=== PATIENT | male | born 1970 | race Caucasian/White ===

== ENCOUNTER 2019-09-17 11:46 | Emergency (ER) | payer SELFPAY ==
[2019-09-17] MEDS ORDERED: METOCLOPRAMIDE HCL INJ/PF 10 MG/2 ML SDV IV ONE (12:03)
[2019-09-17] MEDS ORDERED: DIPHENHYDRAMINE HCL 50 MG/ML VIAL IV ONE (12:03)
[2019-09-17] MEDS ORDERED: NORMAL SALINE 1000 ML 1,000 ML IV ONE ×2 (12:03→14:24)
--- NOTE | 2019-09-17 12:05 | ER Document Report ---
ED Medical Screen (RME) - General Chief Complaint: Eye Problem Stated Complaint: EYE ISSUE Time Seen by Provider: 09/17/19 11:56 Notes: Patient is a 49-year-old male who presents the emergency department with a chief complaint of right eye pain. Patient states that 2 days ago he felt that his eye had hurt and now he has some photophobia. He also states that he has a headache to the right side of his head. Patient admits to rubbing his eye. Denies any visual changes, but states that he is diabetic and his sugars have not been where they need to be. He is currently on metformin. He states that he was on insulin at one point, but states that he cannot afford it because it is too expensive. Exam: Erythema noted to right eye. I have greeted and performed a rapid initial assessment of this patient. A comprehensive ED assessment and evaluation of the patient, analysis of test results and completion of medical decision making process will be conducted by an additional ED providers. TRAVEL OUTSIDE OF THE [place] IN LAST 30 DAYS: No - Related Data Allergies/Adverse Reactions: No Known Allergies Allergy (Verified 09/17/19 11:54) Home Medications: metformin Past Medical History - Social History Chew tobacco use (# tins/day): No Frequency of alcohol use: None Drug Abuse: None Physical Exam - Vital signs Vitals: Temp Pulse Resp BP Pulse Ox 97.5 F 108 H 18 137/87 H 97 09/17/19 11:51 09/17/19 11:51 09/17/19 11:51 09/17/19 11:51 09/17/19 11:51 Course - Vital Signs Vital signs: Temp Pulse Resp BP Pulse Ox 97.5 F 108 H 18 137/87 H 97 09/17/19 11:51 09/17/19 11:51 09/17/19 11:51 09/17/19 11:51 09/17/19 11:51
[2019-09-17] MEDS ORDERED: TETRACAINE HCL 0.5% OPH SOLN 4 ML ONE (12:47)
[2019-09-17 13:02] LABS: ABSOLUTE BASOPHILS # (AUTO) 0.1 10^3/uL (0.0-0.2); ABSOLUTE EOSINOPHILS # (AUTO) 0.1 10^3/uL (0.0-0.6); ABSOLUTE LYMPHOCYTES (AUTO) 1.8 10^3/uL (0.5-4.7); ABSOLUTE MONOCYTES (AUTO) 0.8 10^3/uL (0.1-1.4); ABSOLUTE NEUT (AUTO) 5.6 10^3/uL (1.7-8.2); BASOPHILS % (AUTO) 0.7 % (0-2); EOSINOPHILS % (AUTO) 1.2 % (0-6); HEMATOCRIT 45.9 % (37.9-51.0); HEMOGLOBIN 16.1 g/dL (13.5-17.0); LYMPHOCYTES % (AUTO) 21.8 % (13-45); MEAN CORPUSCULAR HEMOGLOBIN 29.7 pg (27.0-33.4); MEAN CORPUSCULAR HGB CONC 35.2 g/dL (32.0-36.0); MEAN CORPUSCULAR VOLUME 85 fl (80-97); MONOCYTES % (AUTO) 9.1 % (3-13); PLATELET COUNT 322 10^3/uL (150-450); RED BLOOD COUNT 5.42 10^6/uL (4.35-5.55); RED CELL DISTRIBUTION WIDTH 13.6 % (11.5-14.0); SEGMENTED NEUTROPHILS % (AUTO) 67.2 % (42-78); TOTAL CELLS COUNTED % (AUTO) 100 %; WHITE BLOOD COUNT 8.3 10^3/uL (4.0-10.5)
[2019-09-17 13:10] LABS: APPEARANCE,URINE CLEAR; BILIRUBIN,URINE NEGATIVE (NEGATIVE); COLOR,URINE YELLOW; GLUCOSE, URINE >=500 mg/dL (NEGATIVE); KETONES,URINE 20 mg/dL (NEGATIVE); LEUKOCYTE ESTERASE,URINE NEGATIVE (NEGATIVE); NITRITE,URINE NEGATIVE (NEGATIVE); PROTEIN,URINE NEGATIVE (NEGATIVE); URINE SPECIFIC GRAVITY 1.039; UROBILINOGEN,URINE NEGATIVE mg/dL (<2.0)
--- NOTE | 2019-09-17 13:11 | ER Document Report ---
ED Eye Complaint - General Chief Complaint: Eye Problem Stated Complaint: EYE ISSUE Time Seen by Provider: 09/17/19 11:56 Primary Care Provider: KALEE ESTEBAN MD [ACTIVE STAFF] - Follow up as needed Mode of Arrival: Ambulatory Information source: Patient Notes: 49-year-old man presents to the emergency department with a complaint of right eye pain. States that he got up early in the morning on Wednesday morning open refrigerator door and then noted that he was having pain in the right eye. He complains of light sensitivity and tearing from the. He denies a history of alcohol, he has had cataracts. He is a diabetic with poorly controlled diabetes mellitus. TRAVEL OUTSIDE OF THE [place] IN LAST 30 DAYS: No - Related Data Allergies/Adverse Reactions: No Known Allergies Allergy (Verified 09/17/19 11:54) Home Medications: metformin Past Medical History - Social History Smoking Status: Former Smoker Chew tobacco use (# tins/day): No Frequency of alcohol use: None Drug Abuse: None Family History: Reviewed & Not Pertinent Patient has suicidal ideation: No Patient has homicidal ideation: No Review of Systems - Review of Systems Notes: Constitutional: Negative for fever. HENT: Negative for sore throat. Eyes: + Right eye pain. Cardiovascular: Negative for chest pain. Respiratory: Negative for shortness of breath. Gastrointestinal: Negative for abdominal pain, vomiting or diarrhea. Genitourinary: Negative for dysuria. Musculoskeletal: Negative for back pain. Skin: Negative for rash. Neurological: Negative for headaches, weakness or numbness. 10 point ROS negative except as marked above and in HPI. Physical Exam - Vital signs Vitals: Temp Pulse Resp BP Pulse Ox 97.5 F 108 H 18 137/87 H 97 09/17/19 11:51 09/17/19 11:51 09/17/19 11:51 09/17/19 11:51 09/17/19 11:51 - Notes Notes: PHYSICAL EXAMINATION: Physical Exam: General: Well-nourished well-developed in no acute distress HEENT: NC/AT, pupils equal round and reactive to light, MM moist,nares clear, oropharynx clear, airway patent right eye exam: Injected sclera conjunctiva, + photophobia, fluorescein stain negative uptake, ocular pressure 18. (Multiple measurements 16, 19, 18) Neck: supple, no adenopathy, no masses. Good range of motion Lungs: clear, no wheezing, no rales no rhonchi CVS: Regular rate and rhythm no murmur gallop or rub Abdomen: Soft, active, nontender, no masses, no hepatosplenomegaly Ext: No edema, clubbing or cyanosis. Neuro: Alert and responsive, moving all 4 extremities on command, cranial nerves intact, no focal findings Skin: Intact no open lesions, no rash PSYCH: Normal mood, normal affect. - HEENT Visual acuity- Right eye: 20/40 Visual acuity- Left eye: 20/50 Visual acuity- Both eyes: 20/50 Corrective lenses worn: No Course - Re-evaluation Re-evalutation: 09/17/19 14:20 Patient with a injected and light sensitive right, fluorescein stain right, no uptake. Slightly elevated measurements with tonometer. Right eye pressure 20, 22, 18. Dorzolamide drop, Timoptic drop were placed in the right. Will treat as conjunctivitis with uveitis. Uveitis may be diabetic related given his poor control. Will be placed on an antibiotic drops, steroid drops and encouraged to follow-up with the mobility specialist for recheck. Glucose in poor control, IV fl uids were given labs drawn. 09/17/19 14:22 Glucose is elevated at 387, there is no anion gap, CO2 is slightly depressed at 21. He is given 8 units of regular Humulin and a second liter of IV fluids. 09/17/19 15:51 - Vital Signs Vital signs: Temp Pulse Resp BP Pulse Ox 97.5 F 108 H 18 137/87 H 97 09/17/19 11:51 09/17/19 11:51 09/17/19 11:51 09/17/19 11:51 09/17/19 11:51 - Laboratory Result Diagrams: 09/17/19 12:57 09/17/19 12:57 Laboratory results interpreted by me: 09/17/19 09/17/19 09/17/19 12:42 12:57 12:57 Sodium 132.3 L Potassium 5.1 H Chloride 96 L Carbon Dioxide 21 L Glucose 387 H POC Glucose 367 H Urine Glucose (UA) >=500 H Urine Ketones 20 H 09/17/19 14:23 I have reviewed laboratory data and used this information for the treatment decisions regarding the patient. Discharge - Discharge Clinical Impression: Poorly controlled diabetes mellitus, Ocular pain, right eye, Uveitis, anterior Condition: Good Disposition: HOME, SELF-CARE Instructions: Eyedrop Use ([facility]) Additional Instructions: Please follow-up with your primary care doctor regarding your diabetes mellitus, you may qualify for assistance with your medications. Please use the eyedrops as prescribed 2 drops every 4 hours. Prescriptions: Gentamicin Sulfate [Garamycin 0.3% Oph Soln (ER Disp)] 1 drop OD TID #5 ml Prednisolone Acetate [Pred Forte] 2 drop OD Q6 #5 ml Referrals: KALEE ESTEBAN MD [ACTIVE STAFF] - Follow up as needed
[2019-09-17] MEDS ORDERED: TIMOLOL MALEATE 0.25% OPH SOLN 5 ML OD ONE (13:18)
[2019-09-17] MEDS ORDERED: DORZOLAMIDE HCL 2% OPH SOLN 10 ML OD ONE (13:20)
[2019-09-17 13:24] LABS: ALBUMIN 4.4 g/dL (3.5-5.0); ALKALINE PHOSPHATASE 101 U/L (38-126); ANION GAP 15 (5-19); ASPARTATE AMINO TRANSFERASE 18 U/L (17-59); BILIRUBIN,DIRECT 0.4 mg/dL (0.0-0.4); BILIRUBIN,TOTAL 0.7 mg/dL (0.2-1.3); BLOOD UREA NITROGEN 17 mg/dL (7-20); CALCIUM 9.8 mg/dL (8.4-10.2); CARBON DIOXIDE 21 mmol/L (22-30); CHLORIDE 96 mmol/L (98-107); GLUCOSE 387 mg/dL (75-110); POTASSIUM 5.1 mmol/L (3.6-5.0); TOTAL PROTEIN 7.8 g/dL (6.3-8.2)
[2019-09-17] MEDS ORDERED: INSULIN REG, HUMAN 100 UNIT/ML 3 ML VIAL (PYX) IV ONE (14:23)
[2019-09-17 16:48] VITALS: BP 131/85
== END 2019-09-17 16:47 | disposition home or self-care (01) ==
LOC: ER 11:46
DX: E11.8 Type 2 diabetes mellitus with unspecified complications (principal); H57.11 Ocular pain, right eye; H20.9 Unspecified iridocyclitis; Z87.891 Personal history of nicotine dependence
CPT/HCPCS: 99283; 96361; 96374; 96375; 36415; 82962; 85025; 80053; 81001; J1200; J2765; J1815; J3490 ×3; J7030

== ENCOUNTER 2019-10-26 19:40 | Emergency (ER) | payer SELFPAY ==
[2019-10-26] MEDS ORDERED: OXYCODONE-ACETAMINOPHEN 5-325 MG TABLET PO ONE (22:16)
[2019-10-26] MEDS ORDERED: SULFAMETHOXAZOLE/TRIMETHOPRIM 800-160 MG TABLET PO ONE (22:16)
[2019-10-26] MEDS ORDERED: CEPHALEXIN 500 MG CAPSULE PO ONE (22:16)
[2019-10-26] MEDS ORDERED: LIDOCAINE 1% INJ-PF (10 MG/ML) 30 ML SDV INJ ONE (22:17)
--- NOTE | 2019-10-26 22:23 | ER Document Report ---
ED Skin Rash/Insect Bite/Abscs - General Chief Complaint: Abscess Stated Complaint: POSSIBLE ABSCESS Time Seen by Provider: 10/26/19 22:03 Primary Care Provider: [facility] [Provider Group] - Follow up as needed Mode of Arrival: Ambulatory Information source: Patient Notes: 49-year-old male presented to ED for an abscess to the pilonidal area. He states he had one about September 28 it opened on its own drain for about 4 days he called his primary care doctor they put him on some antibiotics. He states it looks like it got a lot smaller and then a couple days ago it started growing again and now it is much larger than it was before. He states it is much more painful than it was before and he does have a history of diabetes. He is alert oriented respirations regular nonlabored speaking in full sentences and is able to walk with a even steady gait. He states he is not allergic to any medications. TRAVEL OUTSIDE OF THE [place] IN LAST 30 DAYS: No - HPI Patient complains to provider of: Tender/swollen area Onset: Other - September 28 Onset/Duration: Gradual Quality of pain: Sharp, Stabbing Severity: Moderate Pain Level: 4 Skin Character: Abscess Quality of rash: Painful Identify cause: No Exacerbated by: Sitting, Movement Relieved by: Denies Similar symptoms previously: Yes Recently seen / treated by doctor: Yes - Virtual visit - Related Data Allergies/Adverse Reactions: No Known Allergies Allergy (Verified 09/17/19 11:54) Past Medical History - General Information source: Patient - Social History Smoking Status: Former Smoker Frequency of alcohol use: None Drug Abuse: None Lives with: Family Family History: Reviewed & Not Pertinent Patient has suicidal ideation: No Patient has homicidal ideation: No - Past Medical History Cardiac Medical History: Reports: None Pulmonary Medical History: Reports: None EENT Medical History: Reports: None Neurological Medical History: Reports: None Endocrine Medical History: Reports: Hx Diabetes Mellitus Type 2 Renal/ Medical History: Reports: None Malignancy Medical History: Reports None GI Medical History: Reports: None Musculoskeletal Medical History: Reports None Skin Medical History: Reports None Psychiatric Medical History: Reports: None Traumatic Medical History: Reports: None Infectious Medical History: Reports: None Past Surgical History: Reports: Other - Cataract surgery Review of Systems - Review of Systems Constitutional: No symptoms reported EENT: No symptoms reported Cardiovascular: No symptoms reported Respiratory: No symptoms reported Gastrointestinal: No symptoms reported Genitourinary: No symptoms reported Male Genitourinary: No symptoms reported Musculoskeletal: No symptoms reported Skin: See HPI, Other - Very large painful pilonidal abscess to the lower back started September 28 states it was draining last week but is gotten much larger Hematologic/Lymphatic: No symptoms reported Neurological/Psychological: No symptoms reported -: Yes All other systems reviewed and negative Physical Exam - Vital signs Vitals: Temp Pulse Resp BP Pulse Ox 98.4 F 134 H 16 127/75 H 95 10/26/19 19:44 10/26/19 19:44 10/26/19 19:44 10/26/19 19:44 10/26/19 19:44 Interpretation: Normal - General General appearance: Appears well, Alert - HEENT Head: Normocephalic, Atraumatic Eyes: Normal Pupils: PERRL - Respiratory Respiratory status: No respiratory distress Chest status: Nontender Breath sounds: Normal Chest palpation: Normal - Cardiovascular Rhythm: Regular Heart sounds: Normal auscultation Murmur: No - Abdominal Inspection: Normal Distension: No distension Bowel sounds: Normal Tenderness: Nontender Organomegaly: No organomegaly - Back Back: Normal, Nontender - Extremities General upper extremity: Normal inspection, Nontender, Normal color, Normal ROM, Normal temperature General lower extremity: Normal inspection, Nontender, Normal color, Normal ROM, Normal temperature, Normal weight bearing. No: Mykel's sign - Neurological Neuro grossly intact: Yes Cognition: Normal Orientation: AAOx4 Maryam Coma Scale Eye Opening: Spontaneous Maryam Coma Scale Verbal: Oriented Maryam Coma Scale Motor: Obeys Commands Maryam Coma Scale Total: 15 Speech: Normal Motor strength normal: LUE, RUE, LLE, RLE Sensory: Normal - Psychological Associated symptoms: Normal affect, Normal mood - Skin Skin Temperature: Warm Skin Moisture: Dry Skin Color: Normal Skin irregularity: Abscess Location of irregularity: Back - Lower back Irregularity with: Swelling, Tenderness, Warmth Course - Re-evaluation Re-evalutation: 10/26/19 22:59 Patient tolerated procedure well. He was given a Percocet for his pain before I started with the I&D. He states his is in the parking lot waiting for him to finish. He was treated with Keflex and Bactrim his wound was packed with iodoform patient has been instructed to return in 48 hours to have the packing removed and changed. Patient verbalized understanding and agreement with treatment plan and patient was discharged home. - Vital Signs Vital signs: Temp Pulse Resp BP Pulse Ox 98.1 F 106 H 16 104/67 99 10/26/19 22:30 10/26/19 22:30 10/26/19 22:30 10/26/19 22:30 10/26/19 22:30 Procedures - Incision and Drainage pilonidal abscess Time completed: :51 Type: Complex Anesthetic type: 1% Lidocaine mL's of anesthetic: 5 I&D procedure: Shurclens applied, Iodoform packing placed, Sterile dressing applied Incision Method: Incision made by scalpel Discharge - Discharge Clinical Impression: Pilonidal abscess Condition: Stable Disposition: HOME, SELF-CARE Additional Instructions: ABSCESS: You have an abscess (boil). This a pus-forming infection, usually due to staph. Some boils may be left to drain on their own, but most require lancing. From the time the tender lump first appears, it may be three or four days before the abscess is ready to andrez. Local heat and rest help at this stage of treatment. An antibiotic may prevent spread of the infection. Once the abscess is opened, packing may be placed into it. This is done so pus is not sealed inside by premature closure of the cavity. The packing will be removed at your follow-up visit or you may be advised to remove it yourself at home. Sometimes this packing must be replaced a few times during healing. The wound will heal with surprisingly little scar. Depending on the size and location of an abscess, healing can take one to four weeks. You may shower and wash the area around the incision site two or three times a day. Antibiotics may be prescribed, but are usually not necessary after an abscess has been drained. If you develop fever, chills, worsening pain, or increasing swelling in the area, call the doctor or return immediately. POST INCISION AND DRAINAGE: You have had an incision made to allow drainage of an abscess. The incision must remain open so that pus and debris can drain from the wound. If the abscess cavity is large, packing is placed. This keeps the tissues from collapsing and trapping pus inside, while the body shrinks the cavity. The packing may need to be replaced every day or two. The physician will instruct you on the packing. Keep a bulky dressing over the area. Replace it if it becomes saturated with blood or pus. Do not disturb the packing (if present). You may shower and cleanse the area with gentle soap and warm water two or three times a day. Local warmth may be soothing, and may promote faster healing. Return if you develop high fever or chills, or if you note spreading redness, increasing swelling, or increasing tenderness. MRSA CELLULITIS: You have an infection of your skin and underlying soft tissues called cellulitis. This is due to bacteria, which can enter through any break in the skin, or even through an irritated hair follicle. Untreated, cellulitis will usually worsen and may form an abscess which requires draining. Although many bacterial organisms can cause cellulitis and abscess formations, the most likely bacteria is Methicillin-Resistant Staph Aureus, or MRSA for short. Antibiotics are required. Usually, warm packs or warm soaks, and elevation of the infected area are recommended. You should start getting better within 24 to 36 hours. Most infections respond quickly to the right medication. Follow-up care is important, however, to check for abscess (boil) formation, unsuspected foreign body, or resistant infection. If you develop fever, chills, or if the area of infection is becoming rapidly more swollen or painful, call the doctor at once. ORAL NARCOTIC MEDICATION: You have been given a percocet for pain control. This medication is a narcotic. It's best taken with food, as nausea can result if taken on an empty stomach. Don't operate machinery or drive within six hours of taking this medication. Do not combine this medicine with alcohol, or with any medication which can cause sedation (such as cold tablets or sleeping pills) unless you get permission from the physician. Narcotics tend to cause constipation. If possible, drink plenty of fluids and eat a diet high in fiber and fruits. CEPHALEXIN: The antibiotic you've been prescribed is a member of the cephalosporin class. This type of antibiotic covers a wide variety of infections, including those of the skin, lungs, and urinary tract. It's useful for staph infections. This antibiotic is slightly similar to the penicillin family. In rare cases, a person who is allergic to penicillin will also be allergic to this medication. If you have had a severe allergic reaction to penicillin, and have not taken this antibiotic since that time, notify your doctor. Antibiotics which cover many germs ("broad spectrum" antibiotics) are more likely to cause diarrhea or "yeast" infections. Women prone to vaginal yeast problems may suffer an attack after taking this antibiotic. In infants, oral thrush (white spots "stuck" on the cheek) or yeast diaper rash may result. See your doctor if these problems occur. Call at once if you develop itching, hives, shortness of breath, or lightheadedness. TRIMETHOPRIM-SULFA: You have been given a prescription for trimethoprim-sulfa (TMS, Septra, Bactrim). This is a combination antibiotic of the sulfa class, often used for urinary tract infections, middle ear infections, bronchitis, shigella intestinal infection, and Pneumocystis pneumonia. TMS is usually well-tolerated. Occasional side effects include nausea and decreased appetite. Septra is not recommended for infants less than two months of age. Do not take this medication if you have experienced severe side effects or allergy to sulfa medicine. You should stop this medicine at once and contact your physician if you develop any rash, joint pain, shortness of breath, bruising, or jaundice (yellow color in the skin), or if you develop any other new or unusual symptoms. Please return to the ED in 48 hours to have this abscess reevaluated and rep acked. When his abscess has healed you will need to consult with a surgeon to have the pilonidal cyst removed or it will turn. FOLLOW-UP CARE: Most simple abscesses will not require a follow up visit. If you had packing placed in the abscess, remove it as instructed by the physician. If you have been referred to a physician for follow-up care, call the physicians office for an appointment as you were instructed or within the next two days. If you experience worsening or a significant change in your symptoms, return to the Emergency Department at any time for re-evaluation. Prescriptions: Sulfamethoxazole/Trimethoprim [Bactrim Ds Tablet] 1 each PO BID #20 tablet Cephalexin Monohydrate [Keflex 500 mg Capsule] 500 mg PO Q6H 5 Days capsule Referrals: [facility] [Provider Group] - Follow up as needed
[2019-10-26 22:31] VITALS: BP 104/67
== END 2019-10-26 23:20 | disposition home or self-care (01) ==
LOC: ER 19:40
PROC: 0H98XZZ Drainage of Buttock Skin, External Approach (ICD-10-PCS; principal; 2019-10-26)
DX: L05.01 Pilonidal cyst with abscess (principal); E11.9 Type 2 diabetes mellitus without complications; Z87.891 Personal history of nicotine dependence
CPT/HCPCS: 99283; 87070; 87205; 87075; 87077; 87186; 10080; J3490

== ENCOUNTER 2019-10-28 17:24 | Emergency (ER) | payer SELFPAY ==
--- NOTE | 2019-10-28 18:55 | ER Document Report ---
HPI - HPI Time Seen by Provider: 10/28/19 17:36 Pain Level: 1 Notes: 49-year-old male patient presented to the emergency department chief complaint of wound recheck. Patient reports he was here on 10/26/2019 and had packing placed to an abscess on his low back/upper buttocks. He states he is taking antibiotics as prescribed, he reports the area still draining. He denies any fevers. - REPRODUCTIVE Reproductive: DENIES: : Past Medical History - General Information source: Patient - Social History Smoking Status: Former Smoker Family History: Reviewed & Not Pertinent Patient has suicidal ideation: No Patient has homicidal ideation: No - Medical History Medical History: Negative Endocrine Medical History: Reports: Hx Diabetes Mellitus Type 2 Past Surgical History: Reports: Other - Cataract surgery Vertical Provider Document - CONSTITUTIONAL Notes: PHYSICAL EXAMINATION: GENERAL: Well-appearing, well-nourished and in no acute distress. HEAD: Atraumatic, normocephalic. EYES: Pupils equal round extraocular movements intact, conjunctiva are normal. ENT: Nares patent NECK: Normal range of motion LUNGS: No respiratory distress Musculoskeletal: Normal range of motion NEUROLOGICAL: Normal speech, normal gait. PSYCH: Normal mood, normal affect. SKIN: Area of erythema with induration noted to upper buttocks, packing in place. No fluctuance noted. - INFECTION CONTROL TRAVEL OUTSIDE OF THE [place] IN LAST 30 DAYS: No Course - Re-evaluation Re-evalutation: Packing removed and replaced. Patient tolerated well. Patient will have remove packing, if she cannot remove this in 48 hours he will return to the emergency department. He is to continue taking his antibiotics. - Vital Signs Vital signs: Temp Pulse Resp BP Pulse Ox 97.7 F 110 H 16 133/88 H 97 10/28/19 17:28 10/28/19 17:28 10/28/19 17:28 10/28/19 17:28 10/28/19 17:28 Discharge - Discharge Clinical Impression: Abscess packing removal, Encounter for wound re-check Condition: Stable Disposition: HOME, SELF-CARE Additional Instructions: Please continue taking all medications as prescribed. Remove the packing in 48 hours. Please continue to keep a clean dressing on the area. Return to the emergency department with new or worsening symptoms such as increased redness, pain, swelling or development of fever.
[2019-10-28 19:12] VITALS: BP 129/88
== END 2019-10-28 19:13 | disposition home or self-care (01) ==
LOC: ER 17:24
DX: Z48.01 Encounter for change or removal of surgical wound dressing (principal); L02.31 Cutaneous abscess of buttock; E11.9 Type 2 diabetes mellitus without complications; Z87.891 Personal history of nicotine dependence
CPT/HCPCS: 99282